=== PATIENT | female | born 1990 | race Caucasian/White ===

== ENCOUNTER 2020-11-08 07:55 | Outpatient (CLI) | payer OTHER, SELFPAY ==
--- NOTE | ~2020-11-08 | US_ITS ---
EXAMINATION: US soft tissue abdomen DATE: 11/08/2020 08:19 INDICATION: Suspect umbilical hernia TECHNIQUE: Multiple grayscale and Doppler ultrasound images of the abdominal wall the region of shelley rn near the umbilicus were obtained. COMPARISON: None FINDINGS: Small wide mouthed hernia at the region of concern with 3 cm diameter mouth to the hernia and extendi ng 2 cm anterior to the plane of the mouth of the hernia. Peristalsing bowel is seen protruding minim ally into the mouth of the hernia. The hernia appears to arise at the deep margin of a shadowing trac t extending towards the umbilicus consistent with an umbilical hernia. IMPRESSION: 1. Peristalsing bowel extends minimally into the otherwise fat-containing small widemouthed umbilical hernia. Reviewed, dictated and finalized at location A.
== END 2020-11-08 07:56 | disposition home or self-care (01) ==
LOC: CHSIMG 07:56
PROVIDERS: PCP Physician Assistant; Visit Provider Physician Assistant
DX: R10.33 Periumbilical pain (principal)
CPT/HCPCS: 76705

== ENCOUNTER 2023-12-14 01:02 | Emergency (ER) | payer OTHER, SELFPAY ==
[2023-12-14 01:02] VITALS: BP 115/67; PULSE 65; RESP 18; TEMP 36.2; O2SAT 96
--- NOTE | 2023-12-14 01:22 | ED.HA ---
HPI - Headache General Chief Complaint: Headache Stated Complaint: headache from LP Time Seen by Provider: 12/14/23 01:19 Source: patient Mode of arrival: ambulatory Limitations: no limitations History of Present Illness HPI Narrative: 33 year old female presents to the Emergency Department complaining of headache. Onset 6 pm. Patient had LP earlier today. MD elicited complaint: headache Onset (ago): hour(s) (7) Location: left Severity: severe Exacerbating factors: none Relieving factors: nothing Associated symptoms: photophobia Related Data Home Medications Medication Instructions Recorded Confirmed gabapentin 300 mg capsule 1,200 mg 12/14/23 Allergies Allergy/AdvReac Type Severity Reaction Status Date / Time haloperidol [From Haldol] Allergy Seizure Verified 12/14/23 01:13 Review of Systems Constitutional: Constitutional: Reports as per HPI, Denies chills and Denies fever(s) Eyes: Eyes: Reports as per HPI and Denies change in vision ENT: Reports system reviewed and no additional complaints, except as documented Comments: dental pain Cardiovascular: Cardiovascular: Reports as per HPI and Denies chest pain Respiratory: Respiratory: Reports as per HPI and Denies dyspnea Gastrointestinal: Gastrointestinal: Reports as per HPI, Denies diarrhea, Denies nausea and Denies vomiting Genitourinary: Genitourinary: Reports no additional female genitourinary complaints Musculoskeletal: Musculoskeletal: Reports no additional musculoskeletal complaints Integumentary/Breasts: Skin/Breast: Reports system reviewed and no additional complaints, except as docu Neurologic: Reports system reviewed and no additional complaints, except as documented, Reports headache(s), Denies focal weakness, Denies numbness and Denies weakness Exam Const: Nutritional Appearance: obese Orientation/consciousness: patient oriented x3 Limitations: no limitations Other: moderate distress HENMT: Head: normal to inspection Ears: external ears normal Face/Nose/Sinus: Normal external nose present Face and sinus: normal facial exam Mouth: Yes Normal oral and palatal mucosa present Throat: posterior oropharynx normal Eyes: Conjunctivae: conjunctivae normal Pupils: Equal, round and reactive pupils present EOM: EOMs intact bilaterally Direct Ophthalmoscopy: photophobia Neck: Neck: normal visual inspection Chest: Chest palpation & inspection: normal inspection of the chest Resp: Effort & Inspection: normal respiratory effort Auscultation: clear to auscultation bilaterally Cardio: Rate: regular rate Rhythm: regular rhythm GI: Inspection: non-distended GI Palp: Yes Soft to palpation and No Tenderness to palpation present (GI) Back/Spine/Pelvis: Back: no CVA tenderness Skin: General skin exam: normal color Rashes: no rashes Neuro: General: patient oriented x3, no meningeal signs, no focal motor deficits and CN's II-XI intact bilaterally Cranial nerves: Yes Nystagmus not present Speech: normal speech Extrem: General: normal to inspection Course Course Emergency Course: 33 y/o female presents to the ED c/o severe headache. Onset 6 pm. Patient had LP earlier today. Patient unsure if headache from LP or she also has some dental pain. PE: mod distress, photophobia, no focal deficit, no meningeal signs Tx: Dilaudid 2 mg IM *discussed with patient. Most likely spinal headache. Advised to return where she had LP for blood patch if headache persists Instructions Vital Signs Vital signs: Vital Signs Temperature 36.2 C L 12/14/23 01:02 Pulse Rate 65 12/14/23 01:02 Respiratory Rate 18 12/14/23 01:02 Blood Pressure 115/67 12/14/23 01:02 Pulse Oximetry 96 12/14/23 01:02 Oxygen Delivery Room Air 12/14/23 01:02 Temperature 36.2 C L 12/14/23 01:02 Pulse Rate 65 12/14/23 01:02 Respiratory Rate 18 12/14/23 01:02 Blood Pressure 115/67 12/14/23 01:02 Pulse Oximetry 96 12/14/23 01:
[2023-12-14] MEDS: HYDROmorphone HCL INJ (*CRX) 2 MG/ML VIAL IM (01:35)
[2023-12-14 01:57] VITALS: BP 124/70; PULSE 68; RESP 18; O2SAT 99
== END 2023-12-14 01:57 | disposition home or self-care (01) ==
LOC: CHSED 01:54
PROVIDERS: Emergency Provider Emergency Medicine; PCP Family Medicine
DX: G97.1 Other reaction to spinal and lumbar puncture (principal); R51.9 Headache, unspecified
CPT/HCPCS: 96372; 99283; J1170

== ENCOUNTER 2024-02-16 10:40 | Emergency (ER) | payer SELFPAY ==
[2024-02-16] VITALS (8 sets, daily range): BP systolic 115–148; BP diastolic 66–99; PULSE 68–102; RESP 15–28; TEMP 36.8–37.1; O2SAT 92–100
--- NOTE | ~2024-02-16 | CT_ITS ---
EXAMINATION: CT brain wo con DATE: 02/16/2024 12:11 INDICATION: Head injury and seizure. TECHNIQUE: Computed tomography (CT) of the head was performed without intravenous contrast. Sagittal and coronal reconstructions were performed. The mA was adjusted according to patient size. Iterative reconstruction technique was employed. The dose-length product was 605.33 mGy-cm. COMPARISON: None FINDINGS: No fracture. No acute intracranial hemorrhage, acute infarction or abnormal extra axial fluid collect ion. Ventricles are normal and symmetric. No mass/mass effect. Small amount of dependently layering f luid/mucus in the left maxillary sinus. The orbits and mastoid air cells are normal. IMPRESSION: 1. Normal brain. No fracture or acute intracranial process. Reviewed, dictated and finalized at location A.
--- NOTE | ~2024-02-16 | XR_ITS ---
EXAMINATION: XR hip RT 2V w AP pelvis DATE: 02/16/2024 12:11 INDICATION: Right hip pain post fall TECHNIQUE: Anteroposterior view of the pelvis and anteroposterior and frog-leg lateral views of the r ight hip were obtained. COMPARISON: None. FINDINGS: Bone alignment is normal. No fracture or suspected osteonecrosis. Bilateral hip and sacral erect join t spaces are relatively preserved. Soft tissues are unremarkable. IMPRESSION: 1. Negative pelvis and right hip radiographs. Reviewed, dictated and finalized at location A.
[2024-02-16 11:19] LABS: Basophils Absolute Auto 0.09 K/mm3 (0.00-0.10); Basophils Percent Auto 0.8 % (0.0-1.0); Eosinophils Absolute Auto 0.25 K/mm3 (0.02-0.50); Eosinophils Percent Auto 2.2 % (1.0-6.0); Hematocrit 44.6 % (35.0-49.0); Hemoglobin 15.1 g/dL (12.0-15.0); Immature Granulocyte Absolute 0.05 K/mm3 (0.00-0.00); Immature Granulocyte Percent A 0.4 % (0.0-0.0); Lymphocytes Absolute Auto 3.17 K/mm3 (1.10-4.50); Lymphocytes Percent Auto 27.5 % (18.0-42.0); Mean Corpuscular HGB Conc 33.9 g/dL (32-36); Mean Corpuscular Hemoglobin 30.9 pg (27.0-31.0); Mean Corpuscular Volume 91.4 fL (78.0-102.0); Mean Platelet Volume 9.7 fl (9.2-11.8); Monocytes Absolute Auto 1.04 K/mm3 (0.10-0.90); Neutrophils Absolute Auto 6.94 K/mm3 (1.70-7.20); Neutrophils Percent Auto 60.1 % (50.0-70.0); Platelet Count Result 337 K/mm3 (150-420); Red Blood Count 4.88 M/mm3 (4.20-5.40); Red Cell Distribution Width 13.9 % (11.6-14.4); White Blood Count 11.5 K/mm3 (4.8-10.8)
[2024-02-16] MEDS: SODIUM CHLORIDE 0.9% IV 1,000 ML 999 ML IV CONT (11:30)
[2024-02-16] MEDS: KETOROLAC 30 MG/ML VIAL (*BKC) IV PUSH (11:30)
--- NOTE | 2024-02-16 11:30 | PC.NURSE ---
Patient noted to be having seizure like activity, breathing remained stable. at bedside. States patient has been struggling with this issues for the past 9 years on and off. Patient seized for 30 seconds, patient alert and oriented after seizure neuros stable.
[2024-02-16] MEDS: LORazepam INJ (*CRX) 2 MG/ML VIAL 0.5 MG IV PUSH (11:31)
[2024-02-16 11:33] LABS: Alanine Aminotransferase 50 U/L (14-59); Albumin Level 3.2 g/dL (3.4-5.0); Alkaline Phosphatase 117 U/L (46-116); Anion Gap 11 mmol/L (4-12); Aspartate Amino Transferase 23 U/L (15-37); Bilirubin,Total 0.5 mg/dL (0.00-1.00); Blood Urea Nitrogen 10 mg/dL (7-18); Calcium 8.9 mg/dL (8.5-10.1); Carbon Dioxide 24 mmol/L (21-32); Chloride 104 mmol/L (98-108); Estimated CRCL calculation 105 ml/min; Estimated Glomerular Filt Rate > 60; Glucose 111 mg/dL (70-99); Osmolality Calculated 288 mOsm/kg (285-295); Potassium 3.5 mmol/L (3.5-5.1); Sodium 139 mmol/L (136-145); Total Protein 6.7 g/dL (6.4-8.2)
--- NOTE | 2024-02-16 11:45 | PC.NURSE ---
REPORT FROM RN NUVIA. PT HAS IVF INFUSING ORDERED WITHOUT DIFFICULTY. PT IS CURSING AND YELLING AT FAMILY MEMBERS IN EXAM ROOM, EXTREMELY RUDE TO STAFF. WILL CONTINUE TO MONITOR.
--- NOTE | 2024-02-16 12:09 | PC.NURSE ---
PT HAS RETURNED FROM XRAY, REPORTING NAUSEA AND PAIN. PT REPORTS TORADOL DOES NOTHING FOR ME, JUST MAKES ME NAUSEATED. PT IS SITTING UPRIGHT ON STRETCHER, REPORTING HIP PAIN THAT RADIATES UP HER BACK. NAD NOTED. A&OX4. WILL CONTINUE TO MONITOR. ERP HAS BEEN NOTIFIED FOR REQUEST OF PAIN AND NAUSEA MEDICATIONS PER PT.
[2024-02-16] MEDS: MORPHINE SULFATE (*CRX) 4 MG/ML INJ IV PUSH (12:15)
[2024-02-16] MEDS: ONDANSETRON INJ 4 MG/2 ML VIAL IV PUSH (12:15)
--- NOTE | 2024-02-16 12:22 | ED.SEIZURE ---
HPI - Seizure General Chief Complaint: Seizure Stated Complaint: seizure-like activity Time Seen by Provider: 02/16/24 10:45 Source: patient, family and EMS Mode of arrival: EMS Limitations: no limitations History of Present Illness HPI Narrative: This is a 33-year-old female with a history of pseudoseizures, also history of MS presents via EMS after she developed pseudoseizures that she has a history of and brought to the emergency department. Patient is alert her oriented no acute distress vitals are stable no tongue biting no loss of bowel or bladder function, the patient did have a fall and states that she hit her head without loss of consciousness and also with a fall injured her right hip area. No other injuries noted no chest pain no shortness of breath no fever chills. complaint: seizure Onset (ago): hour(s) -: second(s) Witnessed: Yes - by EMS Trauma: Yes Seizure History: Yes Place: home Possible Precipitating Event: stress Associated symptoms: denies other symptoms Treatments prior to arrival: none Related Data Home Medications Medication Instructions Recorded Confirmed gabapentin 300 mg capsule 1,200 mg 12/14/23 Allergies Allergy/AdvReac Type Severity Reaction Status Date / Time haloperidol [From Haldol] Allergy Seizure Verified 12/14/23 01:13 ketorolac [From Toradol] AdvReac Nausea Verified 02/16/24 12:11 Review of Systems Review of Systems: All systems reviewed & are unremarkable except as noted in HPI and below PMFSH Past Medical History Medical History Multiple sclerosis Seizure Exam Const: General: healthy appearing, no acute distress and alert Nutritional Appearance: well nourished and obese Orientation/consciousness: patient oriented x3 Limitations: no limitations HENMT: Head: normal to inspection Throat: posterior oropharynx normal Eyes: Conjunctivae: conjunctivae normal Pupils: Equal, round and reactive pupils present EOM: EOMs intact bilaterally Neck: Neck: normal visual inspection Chest: Chest palpation & inspection: normal inspection of the chest Resp: Effort & Inspection: normal respiratory effort Auscultation: clear to auscultation bilaterally Cardio: Rate: regular rate Rhythm: regular rhythm GI: GI Palp: Yes Soft to palpation Auscultation: normal bowel sounds : General: Yes bladder normal to palpation Skin: General skin exam: normal color Rashes: no rashes Wounds: no wounds Neuro: General: patient oriented x3, moves all extremities, no meningeal signs and no focal motor deficits Cranial nerves: Yes Nystagmus not present Speech: normal speech Extrem: General: normal to inspection Other: tender right hip area with movement and palpation with no bruising no swelling. Psych: Appearance: grossly normal Affect: Anxious affect present Course Course Emergency Course: Labs reviewed with patient within normal limits x-ray performed of the right hip shows no acute fractures, CT scan with no acute abnormalities. Patient received IV fluids and pain medication Toradol and morphine after reassessment pain level has improved, patient also received Zofran for nausea, and Ativan. Patient appears back to her baseline. Vital Signs Vital signs: Vital Signs Temperature 36.8 C 02/16/24 10:40 Pulse Rate 89 02/16/24 10:40 Respiratory Rate 24 H 02/16/24 10:40 Blood Pressure 115/82 02/16/24 10:40 Pulse Oximetry 100 02/16/24 10:40 Oxygen Delivery Room Air 02/16/24 10:40 Temperature 36.8 C 02/16/24 10:40 Pulse Rate 89 02/16/24 10:40 Respiratory Rate 24 H 02/16/24 10:40 Blood Pressure 115/82 02/16/24 10:40 Pulse Oximetry 100 02/16/24 10:40 Oxygen Delivery Room Air 02/16/24 10:40 MDM - Seizure Lab Data 02/16/24 11:14 02/16/24 11:14 Labs: Lab Results 02/16/24 Range/Units 11:14 WBC 11.5 H (4.8-10.8) K/mm3 RBC
--- NOTE | 2024-02-16 12:23 | PC.NURSE ---
PT HAS APOLOGIZED FOR HER BEHAVIOR, MEDICATIONS HAVE BEEN ADMINISTERED, LIGHTS ARE OFF AND WARM BLANKET PROVIDED. PT IS CURRENTLY RESTING ON STRETCHER WITH IVF INFUSING WITHOUT DIFFICULTY. WILL CONTINUE TO MONITOR.
--- NOTE | 2024-02-16 12:31 | PC.NURSE ---
PT IS SCREAMING AT SOMEONE ON THE PHONE TELLING THEM I AM STRESSED OUT, THIS IS WHY I HAVE SEIZURES AND YOU ARE TELLING ME TO GET OUT OF HERE. PT IS NOW CRYING IN EXAM ROOM. PT IS ASKING TO GO HOME. ERP HAS WRITTEN DC INSTRUCTIONS.
--- NOTE | 2024-02-16 12:37 | PC.NURSE ---
PT REPORTS SHE WAS YELLING AT HER MOTHER ON THE PHONE BECAUSE SHE WANTED HER ADMITTED TO [facility]. PT REPORTS SHE IS NOT SUICIDAL AND DOES SEE A COUNSELOR. PT IS CALLING TO TRANSPORT HER HOME. PT IS A&OX4. NO SEIZURE ACTIVITY NOTED WHILE I TOOK CARE OF PT.
--- NOTE | 2024-02-16 12:52 | PC.NURSE ---
PT IS AWAITING TRANSPORT HOME, IS TALKING ON PHONE WITHOUT DISTRESS. WILL CONTINUE TO MONITOR.
== END 2024-02-16 13:08 | disposition home or self-care (01) ==
PROVIDERS: Emergency Provider Emergency Medicine; PCP Family Medicine
DX: R56.9 Unspecified convulsions (principal); S76.011A Strain of muscle, fascia and tendon of right hip, initial encounter; G35 Multiple sclerosis; W19.XXXA Unspecified fall, initial encounter
CPT/HCPCS: 36415; 70450; 73502; 80053; 85025; 96361; 96374; 96375; 99284; J1885; J2060; J2270; J2405; J7030